=== PATIENT | female | born 1970 | race Caucasian/White ===

== ENCOUNTER → 2016-12-31 | Outpatient (CLI) | payer BC ==
[2017-01-01 15:44] LABS: Alpha 1 Antitrypsin 70.7 mg/dL (99.0-242.0)
[2017-01-02 12:24] LABS: Alternaria alternata IgE <0.35 kU/L (<0.35); Asperg. fumagatus IgE <0.35 kU/L (<0.35); Asperg. fumagatus IgE Class CLASS 0; Birch(Com.Silvr) IgE Class CLASS 0; Cat Epith & Dander IgE <0.35 kU/L (<0.35); Cat Epith & Dander IgE Class CLASS 0; Clad herbarum IgE <0.35 kU/L (<0.35); Clad herbarum IgE Class CLASS 0; Common Ragweed IgE Class CLASS I; Dermato. Pteronyssinus Class CLASS II; Dermato. Pteronyssinus IgE 2.01 kU/L (<0.35); Dermato. farinae IgE 2.65 kU/L (<0.35); Dermato. farinae IgE Class CLASS II; Maple (Box Elder) IgE <0.35 kU/L (<0.35); Maple (Box Elder) IgE Class CLASS 0; Mountain Cedar IgE <0.35 kU/L (<0.35); Mountain Cedar IgE Class CLASS 0; Mouse Urine IgE Class CLASS 0; Mouse Urine Proteins,IgE <0.35 kU/L (<0.35); Mulberry IgE Class CLASS 0; Nettle IgE <0.35 kU/L (<0.35); Nettle IgE Class CLASS 0; Oak IgE <0.35 kU/L (<0.35); Penicillium notatum IgE Class CLASS 0; Rough Marshelder IgE <0.35 kU/L (<0.35); Rough Marshelder IgE Class CLASS 0; Timothy Grass IgE <0.35 kU/L (<0.35); Timothy Grass IgE Class CLASS 0; White Ash IgE Class CLASS 0
== END | disposition home or self-care (01) ==
LOC: LABWHC1 10:22
PROVIDERS: ATTEND Family Medicine
DX: J45.30 Mild persistent asthma, uncomplicated (principal)
CPT/HCPCS: 36415; 82103; 82164; 82785; 86001; 86003; 86606; 86609

== ENCOUNTER 2017-01-21 13:22 | Emergency (ER) | payer BC ==
[2017-01-21] MEDS ORDERED: ONDANSETRON 4 MG/2 ML VIAL IVP STA (13:50)
[2017-01-21] MEDS ORDERED: SODIUM CHLORIDE 0.9% 1,000 ML IV ONE (13:50)
--- NOTE | 2017-01-21 13:54 | ED ---
General Adult HPI - General Chief complaint: Syncope Stated complaint: Syncope/Vomiting Time Seen by Provider: 01/21/17 13:30 Source: patient, RN notes reviewed Mode of arrival: wheelchair Limitations: no limitations - History of Present Illness Initial comments: This is a 38-year-old female who presents emergency department who in the past states that when she gives blood she has passed out. Patient states today they had to draw some blood on her and she felt fine at that time but she got up and went to her car was driving away and started feeling a little nauseated became lightheaded pulled over put the car in park and she believes she passed out for a short period of time. Patient states she had no symptoms prior to that no symptoms after that except nausea. Patient denies any headache patient denies numbness weakness. Patient denies being lightheaded currently. Patient denies chest pain palpitations difficulty breathing or shortness of breath. Patient denies any abdominal pain patient denies any vomiting but is very nauseated. Patient denies any recent history of diarrhea. Patient states she has been eating and drinking normally. Patient states prior to this event she felt her baseline. - Related Data Home Medications Medication Instructions Recorded Confirmed Fluticasone Nasal [place] [Flonase 2 spr EA NOSTRIL DAILY 01/21/17 01/21/17 Nasal [place]] Fluticasone/Salmeterol [Advair 1 puff INHALATION RT-DAILY 01/21/17 01/21/17 500-50 Diskus] Montelukast Sodium [Singulair] 10 mg PO HS 01/21/17 01/21/17 Multivitamins, Thera [Multivitamin 1 tab PO DAILY 01/21/17 01/21/17 (formulary)] Previous Rx's Medication Instructions Recorded Metoclopramide [Reglan] 5 mg PO Q6HR PRN #5 tab 01/21/17 Allergies Allergy/AdvReac Type Severity Reaction Status Date / Time Penicillins Allergy Rash/Hives Verified 01/21/17 14:38 Review of Systems ROS Statement: Those systems with pertinent positive or pertinent negative responses have been documented in the HPI. ROS Other: All systems not noted in ROS Statement are negative. Past Medical History Past Medical History: Asthma History of Any Multi-Drug Resistant Organisms: None Reported Past Surgical History: Hysterectomy Additional Past Surgical History / Comment(s): foot surgery Past Psychological History: No Psychological Hx Reported Smoking Status: Never smoker Past Alcohol Use History: None Reported Past Drug Use History: None Reported General Exam - General Exam Comments Initial Comments: GENERAL: Patient is well-developed and well-nourished. Patient is nontoxic and well- hydrated and is in mild distress. ENT: Neck is soft and supple. No significant lymphadenopathy is noted. Oropharynx is clear. Moist mucous membranes. Neck has full range of motion without eliciting any pain. EYES: The sclera were anicteric and conjunctiva were pink and moist. Extraocular movements were intact and pupils were equal round and reactive to light. Eyelids were unremarkable. PULMONARY: Unlabored respirations. Good breath sounds bilaterally. No audible rales rhonchi or wheezing was noted. CARDIOVASCULAR: There is a regular rate and rhythm without any murmurs gallops or rubs. ABDOMEN: Soft and nontender with normal bowel sounds. No palpable organomegaly was noted. There is no palpable pulsatile mass. SKIN: Skin is clear with no lesions or rashes and otherwise unremarkable. NEUROLOGIC: Patient is alert and oriented x3. Cranial nerves II through XII are grossly intact. Motor and sensory are also intact. Normal speech, volume and content. Symmetrical smile. MUSCULOSKELETAL: Normal extremities with adequate strength and full range of motion. LYMPHATICS: No significant lymphadenopathy is noted PSYCHIATRIC: Normal psychiatric evaluation. Normal interpersonal interactions appears functionally intact in deals appropriately with others. No signs of depression. No signs of anxiety. Limitations: no limitations Course Vital Signs 01/21/17 01/21/17 01/21/17 13:29 14:10 15:34 Temperature 97.0 F L 97 F L Pulse Rate 77 72 72 Pulse Rate [ Sitting Pulse Oximetery] Pulse Rate [ Standing Pulse Oximetery] Pulse Rate [ Supine Pulse Oximetery] Respiratory 16 16 18 Rate Blood Pressure 112/79 117/75 111/67 Blood Pressure [Left Arm Sitting] Blood Pressure [Left Arm Standing] Blood Pressure [Left Arm Supine] O2 Sat by Pulse 99 100 99 Oximetry 01/21/17 01/21/17 16:05 16:36 Temperature Pulse Rate 79 Pulse Rate [ 94 Sitting Pulse Oximetery] Pulse Rate [ 71 Standing Pulse Oximetery] Pulse Rate [ 73 Supine Pulse Oximetery] Respiratory 18 Rate Blood Pressure 131/67 Blood Pressure 121/83 [Left Arm Sitting] Blood Pressure 127/75 [Left Arm Standing] Blood Pressure 131/67 [Left Arm Supine] O2 Sat by Pulse 100 Oximetry Medical Decision Making - Medical Decision Making EKG shows normal sinus rhythm at 74 bpm [place] interval is on a 52 QRS is 92 QT interval 386 QTC is 428. Patient's EKG shows no ST segment elevation or depression or T-wave abdomen is noted Patient's chest x-ray is normal. Patient was up and ambulating to the bathroom and was symptom-free at this point. Patient was requesting to go home - Lab Data Result diagrams: 01/21/17 14:05 01/21/17 14:05 Lab Results 01/21/17 01/21/17 01/21/17 Range/Units 14:05 14:05 14:05 WBC 7.0 (3.8-10.6) k/uL RBC 4.77 (3.80-5.40) m/uL Hgb 14.6 (11.4-16.0) gm/dL Hct 42.5 (34.0-46.0) % MCV 89.2 (80.0-100.0) fL MCH 30.7 (25.0-35.0) pg MCHC 34.4 (31.0-37.0) g/dL RDW 13.4 (11.5-15.5) % Plt Count 220 (150-450) k/uL Neutrophils % 65 % Lymphocytes % 26 % Monocytes % 4 % Eosinophils % 3 % Basophils % 1 % Neutrophils # 4.6 (1.3-7.7) k/uL Lymphocytes # 1.9 (1.0-4.8) k/uL Monocytes # 0.3 (0-1.0) k/uL Eosinophils # 0.2 (0-0.7) k/uL Basophils # 0.0 (0-0.2) k/uL PT (9.0-12.0) sec INR (<1.2) APTT (22.0-30.0) sec Sodium 141 (137-145) mmol/L Potassium 3.6 (3.5-5.1) mmol/L Chloride 105 (98-107) mmol/L Carbon Dioxide 24 (22-30) mmol/L Anion Gap 12 mmol/L BUN 14 (7-17) mg/dL Creatinine 0.78 (0.52-1.04) mg/dL Est GFR (MDRD) Af Amer >60 (>60 ml/min/1.73 sqM) Est GFR (MDRD) Non-Af >60 (>60 ml/min/1.73 sqM) Glucose 110 H (74-99) mg/dL Calcium 9.5 (8.4-10.2) mg/dL Magnesium 1.9 (1.6-2.3) mg/dL Total Bilirubin 0.6 (0.2-1.3) mg/dL AST 22 (14-36) U/L ALT 30 (9-52) U/L Alkaline Phosphatase 76 (38-126) U/L Total Creatine Kinase 47 (30-135) U/L CK-MB (CK-2) 0.5 (0.0-2.4) ng/mL CK-MB (CK-2) Rel Index 1.1 Troponin I <0.012 (0.000-0.034) ng/mL Total Protein 7.3 (6.3-8.2) g/dL Albumin 4.4 (3.5-5.0) g/dL 01/21/17 Range/Units 14:05 WBC (3.8-10.6) k/uL RBC (3.80-5.40) m/uL Hgb (11.4-16.0) gm/dL Hct (34.0-46.0) % MCV (80.0-100.0) fL MCH (25.0-35.0) pg MCHC (31.0-37.0) g/dL RDW (11.5-15.5) % Plt Count (150-450) k/uL Neutrophils % % Lymphocytes % % Monocytes % % Eosinophils % % Basophils % % Neutrophils # (1.3-7.7) k/uL Lymphocytes # (1.0-4.8) k/uL Monocytes # (0-1.0) k/uL Eosinophils # (0-0.7) k/uL Basophils # (0-0.2) k/uL PT 10.1 (9.0-12.0) sec INR 1.0 (<1.2) APTT 22.6 (22.0-30.0) sec Sodium (137-145) mmol/L Potassium (3.5-5.1) mmol/L Chloride (98-107) mmol/L Carbon Dioxide (22-30) mmol/L Anion Gap mmol/L BUN (7-17) mg/dL Creatinine (0.52-1.04) mg/dL Est GFR (MDRD) Af Amer (>60 ml/min/1.73 sqM) Est GFR (MDRD) Non-Af (>60 ml/min/1.73 sqM) Glucose (74-99) mg/dL Calcium (8.4-10.2) mg/dL Magnesium (1.6-2.3) mg/dL Total Bilirubin (0.2-1.3) mg/dL AST (14-36) U/L ALT (9-52) U/L Alkaline Phosphatase (38-126) U/L Total Creatine Kinase (30-135) U/L CK-MB (CK-2) (0.0-2.4) ng/mL CK-MB (CK-2) Rel Index Troponin I (0.000-0.034) ng/mL Total Protein (6.3-8.2) g/dL Albumin (3.5-5.0) g/dL Disposition Clinical Impression: Vasovagal syncope Disposition: HOME SELF-CARE Condition: Good Instructions: Syncope (ED) Prescriptions: Metoclopramide [Reglan] 5 mg PO Q6HR PRN #5 tab PRN Reason: Vomiting Referrals: None,Stated [REFERRING] - 1-2 days
[2017-01-21 14:33] LABS: Basophils % (A) 1 %; CH 31.2; CHCM 35.1; Eosinophils # (A) 0.2 k/uL (0-0.7); Eosinophils % (A) 3 %; HCT 42.5 % (34.0-46.0); HGB 14.6 gm/dL (11.4-16.0); Luc % (Auto) 2; Lymphocytes # (A) 1.9 k/uL (1.0-4.8); Lymphocytes % (A) 26 %; MCH 30.7 pg (25.0-35.0); MCHC 34.4 g/dL (31.0-37.0); MCV 89.2 fL (80.0-100.0); Mean Platelet Volume 8.1; Monocytes # (A) 0.3 k/uL (0-1.0); Monocytes % (A) 4 %; Neutrophils # (A) 4.6 k/uL (1.3-7.7); Neutrophils % (A) 65 %; RBC 4.77 m/uL (3.80-5.40); RDW 13.4 % (11.5-15.5); WBC (Perox) 7.22
--- NOTE | 2017-01-21 14:34 | XR ---
EXAMINATION TYPE: XR chest 2V DATE OF EXAM: 01/21/2017 COMPARISON: NONE HISTORY: Chest pain TECHNIQUE: Frontal and lateral views of the chest are obtained. FINDINGS: There is no focal air space opacity, pleural effusion, or pneumothorax seen. The cardiac silhouette size is within normal limits. There are overlying cardiac leads. There is a spinal curvat ure. The osseous structures are intact. IMPRESSION: No acute cardiopulmonary process.
[2017-01-21 14:46] LABS: Partial Thromboplastin Time 22.6 sec (22.0-30.0); Prothrombin Time 10.1 sec (9.0-12.0)
[2017-01-21 14:50] LABS: ALT 30 U/L (9-52); AST 22 U/L (14-36); Alkaline Phosphatase 76 U/L (38-126); Anion Gap 12 mmol/L; Blood Urea Nitrogen 14 mg/dL (7-17); Calcium 9.5 mg/dL (8.4-10.2); Carbon Dioxide 24 mmol/L (22-30); Chloride 105 mmol/L (98-107); Glucose 110 mg/dL (74-99); Magnesium 1.9 mg/dL (1.6-2.3); Non-African American GFR(MDRD) >60 (>60 ml/min/1.73 sqM); Potassium 3.6 mmol/L (3.5-5.1); Sodium 141 mmol/L (137-145); Total Bilirubin 0.6 mg/dL (0.2-1.3); Total Protein 7.3 g/dL (6.3-8.2)
[2017-01-21 15:08] LABS: Creatine Kinase MB 0.5 ng/mL (0.0-2.4); Troponin I <0.012 ng/mL (0.000-0.034)
[2017-01-21 15:16] LABS: Creatine Kinase 47 U/L (30-135)
[2017-01-21 15:36] VITALS: RESP 18
[2017-01-21] MEDS ORDERED: METOCLOPRAMIDE 5 MG/ML 2 ML VIAL IVP STA (16:10)
[2017-01-21 17:37] VITALS: BP 122/75; PULSE 74; TEMP 98.7
== END 2017-01-21 17:36 | disposition home or self-care (01) ==
LOC: EC 13:22
DX: R55 Syncope and collapse (principal); R11.0 Nausea; J45.909 Unspecified asthma, uncomplicated; Z79.51 Long term (current) use of inhaled steroids; Z79.899 Other long term (current) drug therapy; Z88.0 Allergy status to penicillin
CPT/HCPCS: 36415; 93005; 80053; 82550; 82553; 83735; 84484; 85025; 85610; 85730; 71020; 99284; 96374; 96375; 96361; J2765; J2405

== ENCOUNTER → 2017-01-30 | Outpatient (CLI) | payer BC ==
--- NOTE | 2017-03-14 13:13 | EM ---
EVENT MONITOR DATE OF SERVICE: AGE:: 46 SEX:: Female INDICATIONS:: EVENT MONITOR 1. The event monitor shows sinus rhythm. 2. Sinus tachycardia. 3. Short runs of nonsustained atrial tachycardia. No bradycardia or pauses. MMODL / IJN: [id number] /
== END | disposition home or self-care (01) ==
LOC: RADECHMAIN 11:33
PROVIDERS: ATTEND Family Medicine
DX: R55 Syncope and collapse (principal)
CPT/HCPCS: 93270; 93271; 95816

== ENCOUNTER → 2017-01-30 | Outpatient (CLI) | payer BC ==
--- NOTE | 2017-01-31 06:21 | EEG ---
DATE OF SERVICE: 01/30/2017 REASON FOR TESTING: Syncope. DESCRIPTION OF THE PROCEDURE: This EEG was performed using a 21 channel digital electroencephalograph, following international 10-20 system. DESCRIPTION OF THE RECORDING: From the beginning of the tracing, and with the patient's eyes closed, the background rhythm was mostly consisting of 9-10 Hz alpha frequency in the posterior occipital leads. No obvious asymmetry is seen. Photic stimulation was performed with a minimal driving response seen. No pathological waves were elicited. Hyperventilation was performed with a mild buildup of amplitude seen. Again, no pathological waves were elicited. Occasional movement artifacts and muscle artifacts are seen. The patient remains awake throughout the tracing. No epileptiform discharges were seen. Her EKG lead showed a regular rate and rhythm. INTERPRETATION: This awake EEG can be considered within normal limits. There was no asymmetry seen. No epileptiform discharges were noticed. The absence of epileptiform discharges does not rule out the diagnosis of epilepsy, therefore clinical correlation is recommended. Thank you, Dr. Artis, for allowing me to participate in the care of your patient. If you have any questions, please feel free to contact me. VANGIE
== END | disposition home or self-care (01) ==
LOC: NEUROMAIN 09:07
PROVIDERS: ATTEND Family Medicine
DX: R55 Syncope and collapse (principal)
CPT/HCPCS: 95816

== ENCOUNTER → 2017-08-01 | Outpatient (CLI) | payer BC ==
--- NOTE | 2017-08-01 20:02 | MR ---
EXAMINATION TYPE: MR lumbar spine wo con DATE OF EXAM: 08/01/2017 COMPARISON: NONE HISTORY: LBP, LLE radic since Jan 2017 CONTRAST: 0 mL intravenous Gadavist. TECHNIQUE: Multiplanar, multisequence images of the lumbar spine were acquired. FINDINGS: Cord terminates at the L1 level. L5-S1: There is a small central protrusion with minimal anterior epidural space impression. Increased signal on T2-weighted sequences is compatible with an annular tear at this level. No AP spinal canal stenosis is present. Neural foramen are patent. Facet hypertrophy is present greater on the left. L4-L5: No significant disc bulge or disc herniation. No spinal canal stenosis. No foraminal stenosi s. . L3-L4: No significant disc bulge or disc herniation. No spinal canal stenosis. No foraminal stenosi s. . L2-L3: No significant disc bulge or disc herniation. No spinal canal stenosis. No foraminal stenosi s. . L1-L2: No significant disc bulge or disc herniation. No spinal canal stenosis. No foraminal stenosi s. . T12-L1: No significant disc bulge or disc herniation. No spinal canal stenosis. No foraminal stenos is. . IMPRESSION: 1. Annular tear and broad-based disc bulge with epidural space contact at L5-S1 without stenosis.
--- NOTE | 2017-08-02 14:36 | XR ---
EXAMINATION TYPE: XR Hip Bilateral Complete DATE OF EXAM: 08/01/2017 CLINICAL HISTORY: pain TECHNIQUE: AP and frogleg views of the bilateral hips are obtained. COMPARISON: None. FINDINGS: There is no acute fracture/dislocation evident. The joint space appears within normal li mits. The overlying soft tissue appears unremarkable. IMPRESSION: 1. There is no acute fracture or dislocation. ICD 10 NO FRACTURE, INITIAL EVALUATION
--- NOTE | 2017-08-02 14:41 | XR ---
EXAMINATION TYPE: XR sacroiliac joint comp BILAT DATE OF EXAM: 08/01/2017 COMPARISON: NONE HISTORY: Pain TECHNIQUE: 3 views of the sacroiliac joints are submitted. FINDINGS: The sacroiliac joints are symmetric. No evidence for abnormal widening or narrowing. No ero sive or destructive process seen. Generative changes lumbar spine. IMPRESSION: Unremarkable evaluation of the sacroiliac joints.
== END | disposition home or self-care (01) ==
LOC: RADMRIMAIN 17:13
PROVIDERS: ATTEND Family Medicine
DX: M51.17 Intervertebral disc disorders with radiculopathy, lumbosacral region (principal); M53.3 Sacrococcygeal disorders, not elsewhere classified; M46.1 Sacroiliitis, not elsewhere classified
CPT/HCPCS: 72148; 72202; 73521

== ENCOUNTER → 2018-12-10 | Outpatient (CLI) | payer BC ==
--- NOTE | 2018-12-10 07:29 | US ---
EXAMINATION TYPE: US abdomen complete DATE OF EXAM: 12/10/2018 COMPARISON: NONE CLINICAL HISTORY: 48-year-old female K76.0 Non alcoholic Fatty liver disease. TECHNIQUE: Multiple sonographic images of the abdomen are obtained. FINDINGS: EXAM MEASUREMENTS: Liver Length: 13.3 cm Gallbladder Wall: 0.1 cm CBD: 0.3 cm Spleen: 9.0 cm Right Kidney: 10.2 x 3.9 x 4.8 cm Left Kidney: 10.2 x 4.8 x 4.6 cm Pancreas: Limited visualization of the pancreatic tail due to shadowing from bowel gas. Visualized p ortions show no gross abnormality. Liver: Cyst left lobe anterior 1.6 x 1.3 x 1.3 cm. Posterior through transmission is present. Some i nternal echoes suggest debris. Gallbladder: wnl Evidence for sonographic Sal[place]'s sign: No CBD: wnl Spleen: wnl Right Kidney: wnl Left Kidney: wnl Upper IVC: wnl Abd Aorta: wnl IMPRESSION: Incidental 1.6 cm cyst in the left hepatic lobe containing some debris. Otherwise, no specific abnorm ality seen.
== END | disposition home or self-care (01) ==
LOC: RADUSWWP 06:47
PROVIDERS: ATTEND Family Medicine
DX: K76.0 Fatty (change of) liver, not elsewhere classified (principal)
CPT/HCPCS: 76700